=== PATIENT | female | born 1970 | race Caucasian/White ===

== ENCOUNTER → 2016-06-24 | Outpatient (CLI) | payer BC ==
--- NOTE | 2016-06-24 14:55 | CT ---
EXAMINATION TYPE: CT sinus wo con DATE OF EXAM: 06/24/2016 2:06 PM COMPARISON: NONE HISTORY: sinus headaches and congestion TECHNIQUE: Helical acquisition through the paranasal sinuses was obtained without intravenous contras t. The data was reformatted in axial and coronal planes. CT DLP: 581 mGycm Automated exposure control for dose reduction was used. FINDINGS: Visualized intracranial structures are unremarkable. Soft tissues and the orbits appear normal. Paranasal sinuses are clear. The mastoid air cells are clear. Both infundibula are patent. IMPRESSION: NORMAL CT SCAN OF THE SINUSES.
== END | disposition home or self-care (01) ==
LOC: RADCTMAIN 13:44
PROVIDERS: ATTEND Otolaryngology
DX: J32.9 Chronic sinusitis, unspecified (principal)
CPT/HCPCS: 70486

== ENCOUNTER → 2016-11-18 | Outpatient (CLI) | payer BC ==
[2016-11-18 15:16] LABS: Estradiol 58.1 pg/mL
== END | disposition home or self-care (01) ==
LOC: LABWHC1 08:47
PROVIDERS: ATTEND Obstetrics & Gynecology
DX: N95.1 Menopausal and female climacteric states (principal)
CPT/HCPCS: 36415; 82670; 83001; 84403

== ENCOUNTER → 2017-07-16 | Outpatient (CLI) | payer BC | END | disposition home or self-care (01) | LOC: LABWHC1 13:23 | PROVIDERS: ATTEND Nurse Practitioner | DX: E03.9 Hypothyroidism, unspecified (principal); G47.00 Insomnia, unspecified; R61 Generalized hyperhidrosis; R00.2 Palpitations | CPT/HCPCS: 36415; 82670; 83001; 84403; 84443 ==

== ENCOUNTER → 2017-10-01 | Outpatient (CLI) | payer BC, OTHER ==
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
--- NOTE | 2017-10-01 23:05 | MR ---
EXAMINATION TYPE: MR cspine/lspine wo con DATE OF EXAM: 10/01/2017 COMPARISON: NONE HISTORY: Cervicalgia and lumbago per order. Neck and lower back pain, weakness in RUE/BLE per patient . TECHNIQUE: Multiplanar, multisequence imaging of the cervical and lumbar spine are performed without IV contrast. FINDINGS: C-SPINE: FINDINGS: Coronal images show dextroconvex scoliotic curvature centered in the upper thoracic spine. Sagittal images of the cervical spine show the craniocervical junction to appear within normal limits . The cervical and upper thoracic spinal cord is normal in course and caliber. There is focal area of central canal prominence or syrinx centered at the C7 vertebra sagittal image 7. There is grade 1 retrolisthesis of C4 on C5. The vertebral body heights are normal. There is mild to moderate disc sp eladio narrowing C4-C5 and C6-C7 levels. Posterior disc herniations are seen at these levels on sagittal images effacing the anterior thecal sac. The bone marrow signal intensity is within normal limits. No significant spurring is present. Axial images show the C2-C3 and C3-C4 levels to appear within normal limits. Axial images at C4-C5 level showed broad based posterior disc protrusion mildly effacing the anterior thecal sac and causing mild right-sided neural foraminal narrowing. Left-sided neural foramen is pat ent. Axial images at C5-C6 level show tiny central disc protrusion mildly facing anterior thecal sac, bila teral neural foramina are patent. Axial images at C6-C7 level shows broad-based central disc protrusion effacing anterior thecal sac on axial image 14 and causing mild to minimal left greater than right neural foraminal narrowing. Axial images at C7-T1 level are felt within normal limits. IMPRESSION: Spondylolisthesis C4 on C5 level, multilevel degenerative changes most prominent at C4-C5 and C6-C7 levels as detailed above. L-SPINE: Sagittal images of the lumbar spine show vertebral body heights and alignment to appear satisfactory. The intervertebral discs demonstrate multilevel disc desiccation with disc space heights are maintai yancy. And the large posterior disc herniations are seen on sagittal images The conus medullaris is no rmal in position and signal ending inferior L1 level. The bone marrow signal intensity is within nor mal limits. No significant spurring is present. Axial images show the T12-L1, L1-L2, L2-L3, and L3-L4 levels all to appear within normal limits. Axial images at the L4-L5 level show mild facet arthropathy and ligamentum flavum hypertrophy. Spinal canal is preserved and bilateral neural foramina are patent. Axial images at L5-S1 level mild to moderate bilateral facet arthropathy. Spinal canal is preserved. Bilateral neuroforamina are patent. Gallbladder has distended margins. Paraspinal muscle bulk is fairly well maintained. IMPRESSION: Lower lumbar spine facet arthropathy. No suspicious disc herniations identified to accoun t for radiculopathy type symptoms.
== END | disposition home or self-care (01) ==
LOC: RADMRIMAIN 20:22
PROVIDERS: ATTEND Nurse Practitioner Acute Care
DX: M43.12 Spondylolisthesis, cervical region (principal); M47.812 Spondylosis without myelopathy or radiculopathy, cervical region; M46.96 Unspecified inflammatory spondylopathy, lumbar region; R90.82 White matter disease, unspecified; S09.90XA Unspecified injury of head, initial encounter
CPT/HCPCS: 70551; 72141; 72148

== ENCOUNTER → 2017-12-24 | Outpatient (CLI) | payer BC ==
--- NOTE | 2017-12-24 18:17 | NM ---
EXAMINATION TYPE: NM hepatobiliary wo EF DATE OF EXAM: 12/24/2017 COMPARISON: NONE HISTORY: TECHNIQUE: After the intravenous administration of 5.27 mCi Tc 99m Mebrofenin hepatobiliary scintigra phy is performed. Immediate images post injection. FINDINGS: There is prompt uptake of radiotracer by the liver that has normal size and contour. There is normal uptake of the tracer in the liver. There is tracer in the small bowel at 12 minutes. Images were obta ined up to 60 minutes that show no tracer in the gallbladder. At 2 hours Tracers all cleared from the liver and there is no evidence of gallbladder uptake. IMPRESSION: No focal liver defect. No common bile duct obstruction. Gallbladder is not visualized that is suggestive of cystic duct obstruction.
== END | disposition home or self-care (01) ==
LOC: RADNMMAIN 14:56
PROVIDERS: ATTEND Family Medicine
DX: R10.9 Unspecified abdominal pain (principal)
CPT/HCPCS: 78226; A9537

== ENCOUNTER → 2018-08-24 | Outpatient (CLI) | payer BC | END | disposition home or self-care (01) | LOC: LABWHC1 10:56 | PROVIDERS: ATTEND Obstetrics & Gynecology | DX: E03.9 Hypothyroidism, unspecified (principal); R53.83 Other fatigue; R61 Generalized hyperhidrosis; N95.1 Menopausal and female climacteric states | CPT/HCPCS: 36415; 82670; 83001; 84403; 84443; 84481 ==

== ENCOUNTER → 2019-12-09 | Outpatient (CLI) | payer BC ==
[2019-12-09 09:56] LABS: Basophils % (A) 1 %; Eosinophils # (A) 0.1 k/uL (0-0.7); Eosinophils % (A) 2 %; HCT 42.3 % (34.0-46.0); HGB 14.1 gm/dL (11.4-16.0); Lymphocytes # (A) 1.3 k/uL (1.0-4.8); Lymphocytes % (A) 27 %; MCH 34.1 pg (25.0-35.0); MCHC 33.2 g/dL (31.0-37.0); MCV 102.7 fL (80.0-100.0); Monocytes # (A) 0.3 k/uL (0-1.0); Monocytes % (A) 7 %; Neutrophils % (A) 62 %; Platelet Count 396 k/uL (150-450); RBC 4.12 m/uL (3.80-5.40); RDW 11.3 % (11.5-15.5); WBC 4.8 k/uL (3.8-10.6)
[2019-12-09 17:17] LABS: ALT 14 U/L (8-44); AST 19 U/L (13-35); African American GFR (CKD) 99.6 (60.0-200.0); Albumin/Globulin Ratio 2.42 (1.60-3.17); Alkaline Phosphatase 64 U/L (41-126); C Reactive Protein <0.4 mg/dL (0.0-0.8); Calcium 9.6 mg/dL (8.7-10.3); Carbon Dioxide 27.7 mmol/L (21.6-31.8); Chloride 106 mmol/L (96-109); Globulin 1.9 g/dL (1.6-3.3); Glucose 86 mg/dL (70-110); Potassium 4.3 mmol/L (3.5-5.5); Sodium 140 mmol/L (135-145); Total Bilirubin 0.7 mg/dL (0.3-1.2); Total Protein 6.5 g/dL (6.2-8.2)
[2019-12-09 18:06] LABS: Gliadin AB IgA, Deaminated NEGATIVE (NEGATIVE); Gliadin AB IgA, Unit <0.2 U/mL; Gliadin AB IgG, Deaminated NEGATIVE (NEGATIVE)
[2019-12-09 19:09] LABS: Erythrocyte Sedimentation Rate 8 mm/Hr (0-20)
== END | disposition home or self-care (01) ==
LOC: LABWHC1 08:47
PROVIDERS: ATTEND Internal Medicine
DX: R19.7 Diarrhea, unspecified (principal); R19.4 Change in bowel habit
CPT/HCPCS: 36415; 80053; 83516; 83993; 85025; 85652; 86140; 87045; 87046; 87324; 87328; 87329

== ENCOUNTER → 2020-10-16 | Outpatient (CLI) | payer BC ==
[2020-10-16 15:23] LABS: Estradiol 46.9 pg/mL; Follicle Stimulating Hormone 35.4 mIU/mL
== END | disposition home or self-care (01) ==
LOC: LABWHC1 10:35
PROVIDERS: ATTEND Obstetrics & Gynecology
DX: N95.1 Menopausal and female climacteric states (principal)
CPT/HCPCS: 36415; 82670; 83001; 84144; 84403

== ENCOUNTER → 2021-10-04 | Outpatient (CLI) | payer BC ==
[2021-10-04 18:24] LABS: Basophils # (A) 0.05 X 10*3/uL (0.00-0.10); Basophils % (A) 0.7 %; Eosinophils # (A) 0.06 X 10*3/uL (0.04-0.35); Eosinophils % (A) 0.9 %; HCT 39.5 % (37.2-46.3); HGB 13.5 g/dL (12.0-15.0); Immature Grans, Automated 0.1 %; Lymphocytes # (A) 1.66 X 10*3/uL (0.90-5.00); Lymphocytes % (A) 24.5 %; MCH 35.4 pg (27.0-32.0); MCHC 34.2 g/dL (32.0-37.0); MCV 103.7 fL (80.0-97.0); Mean Platelet Volume 9.7 fL (9.5-12.2); Monocytes # (A) 0.53 X 10*3/uL (0.20-1.00); Monocytes % (A) 7.8 %; NRBC Per 100 WBC 0 /100 WBCS (0.0-0.0); Neutrophils # (A) 4.47 X 10*3/uL (1.80-7.70); Platelet Count 379 X 10*3/uL (140-440); RBC 3.81 X 10*6/uL (4.10-5.20); RDW 11.2 % (11.5-14.5); WBC 6.78 X 10*3/uL (4.50-10.00)
[2021-10-04 18:53] LABS: African American GFR (CKD) 93.6 (60.0-200.0); Albumin 4.5 g/dL (3.8-4.9); Albumin/Globulin Ratio 2.27 (1.60-3.17); Anion Gap 13.2 mmol/L (10.00-18.00); BUN/Creat Ratio 12.61 Ratio (12.00-20.00); Blood Urea Nitrogen 10.5 mg/dL (9.0-27.0); Calcium 9.6 mg/dL (8.7-10.3); Carbon Dioxide 24.8 mmol/L (20.0-27.5); Non-African American GFR(CKD) 80.7 (60.0-200.0); Potassium 4.1 mmol/L (3.5-5.5); T4, Free (Free Thyroxine) 1.03 ng/dL (0.800-1.800); Total Bilirubin 0.4 mg/dL (0.30-1.20); Total Protein 6.5 g/dL (6.2-8.2)
== END | disposition home or self-care (01) ==
LOC: LABWHC1 13:46
PROVIDERS: ATTEND Nurse Practitioner Acute Care
DX: E55.9 Vitamin D deficiency, unspecified (principal); E53.9 Vitamin B deficiency, unspecified; R41.3 Other amnesia; R42 Dizziness and giddiness
CPT/HCPCS: 36415; 80053; 82306; 82607; 84207; 84439; 84443; 84481; 85025